=== PATIENT | male | born 1950 | race Caucasian/White ===

== ENCOUNTER 2018-02-02 10:12 | Inpatient (IN) | payer MEDICARE, MEDICAID ==
--- NOTE | 2018-02-02 10:46 | ED Physician Chart ---
ED Chief Complaint/HPI - Patient Information Date Seen:: 02/02/18 Time Seen:: 10:10 Chief Complaint:: Syncope History of Present Illness:: onset x 3 days of multiple syncope and near-syncope episodes resulting in multiple falls; no report of obvious injuries, trauma, H/As, S/T, neck pain, C/P , SOB, Abd. Pain, A/N/V/D/c, fever, chills, or urinary s/s; pt's last tetanus shot: < 5 years; UTD Allergies:: Allergies Allergy/AdvReac Type Severity Reaction Status Date / Time Penicillins [PCN] Allergy Verified 02/02/18 10:22 Vitals:: Vital Signs - 8 hr 02/02/18 10:22 Temp 97.8 F HR 83 RR 16 BP 159/96 O2 Sat % 98 Historian:: Patient Review:: Nurse's Note Reviewed ED Review of Systems - Review of Systems General/Constitutional: No fever, No chills, No weight loss, No weakness, No diaphoresis, No edema, No loss of appetite Skin: No skin lesions, No rash, No bruising Head: No headache, No light-headedness Eyes: No loss of vision, No pain, No diplopia ENT: No earache, No nasal drainage, No sore throat, No tinnitus Neck: No neck pain, No swelling, No thyromegaly, No stiffness, No mass noted Cardio Vascular: No chest pain, No palpitations, No PND, No orthopnea, No edema Pulmonary: No SOB, No cough, No sputum, No wheezing GI: No nausea, No vomiting, No diarrhea, No pain, No melena, No hematochezia, No constipation, No hematemesis G/U: No dysuria, No frequency, No hematuria, No nacturia Musculoskeletal: No bone or joint pain, No back pain, No muscle pain Endocrine: No polyuria, No polydipsia Psychiatric: No prior psych history, No depression, No anxiety, No suicidal ideation, No homicidal ideation, No auditory hallucination, No visual hallucination Hematopoietic: No bruising, No lymphadenopathy Allergic/Immuno: No urticaria, No angioedema Neurological: Syncope, No focal symptoms, Weakness, No paresthesia, No headache , No seizure, Dizziness, No confusion, Vertigo ED Past Medical History - Past Medical History Obtainable: Yes Past Medical History: HTN, CVA/TIA, Dyslipidemia, Arthritis Family History: HTN Social History: Smoker, Alcohol, No Drug Use, Surgical History: other (Back Surgery) Psychiatricy History: None Medication: Reviewed Family Medical History - Family Member Mother History Unknown: Yes ED Physical Exam - Physical Examination General/Constitutional: Awake, Well-developed, well-nourished, Alert, No distress, GCS 15, Non-toxic appearing, Ambulatory Head: Atraumatic Eyes: Lids, conjuctiva normal, PERRL, EOMI Skin: Nl inspection, No rash, No skin lesions, No ecchymosis, Well hydrated, No lymphadenopathy ENMT: External ears, nose nl, TM canals nl, Nasal exam nl, Lips, teeth, gums nl , Oropharynx nl, Tonsils nl Neck: Nontender, Full ROM w/o pain, No JVD, No nuchal rigidity, No bruit, No mass, No stridor Respiratory: Nl effort/Exclusion, Clear to Auscultation, No Wheeze/Rhonchi/Rales Cardio Vascular: RRR, No murmur, gallop, rubs, NL S1 S2, Carotid/Femoral/Distal pulses equal bilaterally GI: No tenderness/rebounding/guarding, No organomegaly, No hernia, Normal BS's, Nondistended, No mass/bruits, No McBurney tenderness : No CVA tenderness Extremities: No tenderness or effusion, Full ROM, normal strength in all extremities, No edema, Normal digits & nails Neuro/Psych: Alert/oriented, DTR's symmetric, Normal sensory exam, Normal motor strength, Judgement/insight normal, Mood normal, Normal gait, No focal deficits Misc: Normal back, No paraspinal tenderness ED Labs/Radiology/EKG Results - Lab Results Comments:: unremarkable - Radiology Results Comments:: NAD - EKG Interpretations EKG Time:: 10:56 Rate & Rhythm: 81; NSR Comments:: non-specific st-t changes ED Septic Shock - . Is Septic Shock (SBP<90, OR Lactate>4 mmol\L) present?: No - <6hrs of presentation: Vital Signs: Vital Signs - 8 hr 02/02/18 10:22 Temp 97.8 F HR 83 RR 16 BP 159/96 O2 Sat % 98 ED Reassessment (Disposition) - Reassessment Reassessment Condition:: Improved - Diagnosis Diagnosis:: Dx: Syncope; S/P Falls; Multiple Falls; Near-Syncope; Cardiac Arrythmias; TIA - Aftercare/Follow up Instructions Aftercare/Follow-Up Instructions:: Counseled pt regarding lab results/diagnosis & need follow up, Counseled pt & family regarding lab results/diagnosis & need follow up - Patient Disposition Discharge/Transfer:: Acute Care w/in this hosp Accepting Physician:: Dr. Andrae Swann Time Called:: 1200 Time Responded:: 12:00 Admitted to:: Telemetry Spoke to:: Dr. Andrae Swann Admitting Medical Physician:: Dr. Andrae Swann Condition at Disposition:: Stable, Improved
[2018-02-02 10:57] LABS: % EOSINOPHILS 3.5 % (0.0-5.0); % LYMPHOCYTES 28.3 % (20.0-50.0); % MONOCYTES 9.2 % (2.0-10.0); BASOPHILE ABSOLUTE 0.1 Th/cumm (0-0.2); EOSINOPHILE ABSOLUTE 0.2 Th/cmm (0.1-0.4); HEMATOCRIT 44.9 % (41.0-60); LYMPHOCYTE ABSOLUTE 1.6 Th/cmm (1.5-3.0); MEAN CELL VOLUME 94.2 fl (80-99); MEAN CORPUSCULAR HEMOGLOBIN 31.5 pg (27.0-31.0); MEAN CORPUSCULAR HGB CONC 33.4 pg (28.0-36.0); MONOCYTE ABSOLUTE 0.5 Th/cmm (0.3-1.0); NEUTROPHILE ABSOLUTE 3.4 Th/cmm (1.8-8.0); PLATELET COUNT 305 Th/cmm (150-400); RED BLOOD COUNT 4.77 Mil/cmm (3.80-5.80); WHITE BLOOD COUNT 5.8 Th/cmm (4.8-10.8)
[2018-02-02 11:07] LABS: INR 0.97 (0.5-1.4); PROTHROMBIN TIME (TEST) 10.1 SECONDS (9.5-11.5)
[2018-02-02 11:11] LABS: ALB/GLOB RATIO 1.3 (1.0-1.8); ALBUMIN 4.3 gm/dL (4.2-5.5); ALKALINE PHOSPHATASE 77 U/L (34-104); BILIRUBIN,TOTAL 0.7 mg/dL (0.3-1.0); BUN - UREA NITROGEN 11 mg/dL (7-25); CALCIUM SERUM 9.4 mg/dL (8.6-10.3); CARBON DIOXIDE 22.7 mEq/L (21.0-31.0); CHLORIDE 103 mEq/L (98-107); CHOLESTEROL 164 mg/dL (<200); CREATININE - SERUM 0.6 mg/dL (0.7-1.3); CREATININE KINASE 104 U/L (30-223); GFR AFRICAN-AMERICAN > 60.0 ml/min (>90); GFR NON AFRICAN-AMERICAN > 60.0 ml/min; GLUCOSE 105 mg/dL (70-105); HDL -HIGH DENSITY LIPOPROTEIN 88 mg/dL (23-92); POTASSIUM SERUM 3.7 mEq/L (3.5-5.1); SGOT 16 U/L (13-39); SGPT/ALT 11 U/L (7-52); SODIUM SERUM 133 mEq/L (136-145); TOTAL PROTEIN,SERUM 7.5 gm/dL (6.0-8.3); TRIGLYCERIDES 61 mg/dL (<150)
--- NOTE | 2018-02-02 11:12 | Diagnostic Imaging Report ---
CHEST X-RAY: AP view INDICATION: pain COMPARISON: None FINDINGS: Mild chronic lung changes are noted. There is no focal consolidation or pleural effusions The heart is normal in size. Advanced degenerative changes of right shoulder noted with high right and right humeral head. IMPRESSION: Mild chronic lung changes with no focal consolidation identified. Advanced degenerative changes of the right shoulder.
[2018-02-02] MEDS ORDERED: Morphine Sulfate 4 mg/mL 1mL Syr IV STA (14:14)
[2018-02-02] MEDS ORDERED: Morphine Sulfate 2 mg/mL 1mL Syr IV STA (14:14)
[2018-02-02] MEDS ORDERED: Morphine Sulfate 4 mg/mL 1mL Syr ONE (14:23)
[2018-02-02] MEDS ORDERED: Hydrocodone/APAP 5mg/325mg Tab PO PRN (17:19)
[2018-02-02] MEDS: Hydrocodone/APAP 10 mg/325 mg Tab PO PRN (18:01)
[2018-02-03] MEDS: Hydrocodone/APAP 10 mg/325 mg Tab PO PRN ×2 (01:01→10:24)
[2018-02-03 04:58] VITALS: BP 130/72
[2018-02-03 06:34] LABS: % BASOPHILS 0.8 % (0.0-2.0); % EOSINOPHILS 6.4 % (0.0-5.0); % LYMPHOCYTES 38.2 % (20.0-50.0); % MONOCYTES 9.2 % (2.0-10.0); % NEUTROPHILS 45.4 % (40.0-80.0); EOSINOPHILE ABSOLUTE 0.4 Th/cmm (0.1-0.4); HEMATOCRIT 41.3 % (41.0-60); HEMOGLOBIN 14.2 gm/dL (12-16); LYMPHOCYTE ABSOLUTE 2.3 Th/cmm (1.5-3.0); MEAN CELL VOLUME 92.9 fl (80-99); MEAN CORPUSCULAR HEMOGLOBIN 31.9 pg (27.0-31.0); MEAN CORPUSCULAR HGB CONC 34.4 pg (28.0-36.0); MEAN PLATELET VOLUME 7.4 fl; MONOCYTE ABSOLUTE 0.6 Th/cmm (0.3-1.0); NEUTROPHILE ABSOLUTE 2.8 Th/cmm (1.8-8.0); PLATELET COUNT 265 Th/cmm (150-400); RED BLOOD COUNT 4.44 Mil/cmm (3.80-5.80); RED CELL DISTRIBUTION WIDTH 12.9 % (11.5-20.0); WHITE BLOOD COUNT 6.1 Th/cmm (4.8-10.8)
[2018-02-03 06:43] LABS: ANION GAP 10.5 (7.0-16.0); BUN - UREA NITROGEN 16 mg/dL (7-25); CALCIUM SERUM 9.3 mg/dL (8.6-10.3); CARBON DIOXIDE 25.1 mEq/L (21.0-31.0); CHLORIDE 102 mEq/L (98-107); CHOLESTEROL 142 mg/dL (<200); CREATININE - SERUM 0.7 mg/dL (0.7-1.3); GFR AFRICAN-AMERICAN > 60.0 ml/min (>90); GFR NON AFRICAN-AMERICAN > 60.0 ml/min; GLUCOSE 102 mg/dL (70-105); HDL -HIGH DENSITY LIPOPROTEIN 72 mg/dL (23-92); POTASSIUM SERUM 3.6 mEq/L (3.5-5.1); SODIUM SERUM 134 mEq/L (136-145); TRIGLYCERIDES 73 mg/dL (<150)
--- NOTE | 2018-02-03 08:51 | Diagnostic Imaging Report ---
CT scan of the brain without intravenous contrast HISTORY: Syncope, frequent falls Total DLP equals 718 CTDI equals 35.7 Axial sections were obtained from the base of the skull to the vertex. There is enlargement of ventricular system along with enlargement of cerebral sulci and subarachnoid cisterns reflecting atrophy. Focal hypodensity seen within the right and left frontal regions. There appears to be volume loss and changes associated with encephalomalacia. Exact etiology is uncertain. Changes may be related to old infarcts. Clinical correlation is needed. A follow-up MRI exam would provide additional characterization and assessment. No acute intracerebral hemorrhage. No mass effect or shift of midline structures. Sclerotic change involves the mastoid air cell regions bilaterally. Findings may be associated with inflammatory sequelae. IMPRESSION: 1. Bilateral fairly symmetric hypodense changes with fine loss consistent with encephalomalacia within the frontal regions of the brain. Exact etiology uncertain. Changes may be related to old infarcts. Clinical correlation needed. If necessary, a follow-up MRI exam would provide additional characterization 2. No acute intracerebral abnormalities 3. Sclerotic change involving the mastoid air cell regions bilaterally consistent with inflammatory sequelae.
[2018-02-03] MEDS: APAP/Oxycodone 5/325mg Oral Tab PO PRN ×2 (13:42→20:22)
--- NOTE | 2018-02-03 14:40 | History & Physical ---
ADMIT DATE: 02/03/2018 CHIEF COMPLAINT: Syncope. HISTORY OF PRESENT ILLNESS: The patient is a 67-year-old male with past medical history of hypertension, CVA, TIA, dyslipidemia, arthritis, had multiple episodes of syncope and near syncope episodes with multiple falls. Otherwise, he complains of severe peripheral neuropathy in both lower extremities, below the hip. He also stated that he had some back surgery performed in the past. He gets severe back pain and neuropathic pain. On initial evaluation, the patient's vitals were stable. Lab work also within normal limit. CT scan of the head was performed, did not show any acute abnormality. The patient was admitted for evaluation. PAST MEDICAL HISTORY: Hypertension, CVA, TIA, dyslipidemia, arthritis. He had a few visits to the hospital; last one, he had UTI and he stayed in the hospital for 2 months. FAMILY HISTORY: None significant. SOCIAL HISTORY: The patient lives at home at this time. He has a history of smoking and alcohol, but denies any drug use. . PAST SURGICAL HISTORY: Back surgery. PSYCHIATRIC HISTORY: None. REVIEW OF SYSTEMS: GENERAL: The patient denies any fever or chills. HEENT: No diplopia, no photophobia, no sore throat. RESPIRATORY: No cough, no shortness of breath. CARDIOVASCULAR: No chest pain or palpitation. GASTROINTESTINAL: No nausea, no vomiting, no diarrhea, no constipation. GENITOURINARY: No dysuria. The patient has an indwelling catheter for neurogenic bladder probably. NEUROLOGIC: No headache, no dizziness. The patient has weakness of both lower extremities and has neuropathic pain. PHYSICAL EXAMINATION: CURRENT VITAL SIGNS: Show temperature is 97.9, pulse 71, respiration is 18, blood pressure 156/89. GENERAL: The patient is comfortable, lying in the bed, not in acute distress. HEENT: Head is normocephalic, atraumatic. Oral cavity moist, pink tongue. Eyes: No pallor, no icterus. Pupils, PERRLA, EOMI. NECK: Supple. No JVD, no carotid bruit. Trachea midline. CHEST: Bilateral breath sounds. No crackles or wheezing. HEART: S1, S2 within normal limits. Regular rhythm. No murmur, no gallop. ABDOMEN: Soft, nontender, nondistended. Bowel sounds present. EXTREMITIES: No cyanosis, no clubbing, no edema. NEUROLOGIC: Alert, awake, oriented x 3. LABORATORY DATA: His current lab shows WBC count is 6100, hemoglobin 14.2, hematocrit 41.3, platelets are 265,000. Sodium 134, potassium 3.6, chloride 102, bicarbonate is 25, BUN is 16, creatinine 0.7, glucose 102. IMPRESSION: 1. Syncope and near syncopal episodes with frequent falls. 2. Hypertension. 3. History of CVA. 4. History of cerebrovascular accident and transient ischemic attack. 5. Dyslipidemia. 6. Arthritis. RECOMMENDATIONS: We will call Dr. Chacorta Swann for cardiology consult and Dr. Montano for neurological consultation. check carotid duplex ultrasound. JOB# [id number] [email or web address]
[2018-02-03] MEDS: Triple Antibiotic 0.94 gm Pkt TP SCH (18:42)
--- NOTE | 2018-02-03 23:56 | Consultation ---
DATE OF CONSULTATION: 02/02/[address] Gregg Swann. HISTORY OF PRESENT ILLNESS: This is a 67-year-old male patient who has frequent falls with syncopal episode and hence, the patient was brought to the Emergency Room and the patient is admitted. No history of PND or orthopnea. PAST MEDICAL HISTORY: Syncope, frequent falls, hypertension, CVA with late effect, hyperlipidemia, and peripheral neuropathy. FAMILY HISTORY: Unremarkable. SOCIAL HISTORY: No history of smoking or alcohol abuse. ALLERGIES: No known allergies. PHYSICAL EXAMINATION: VITAL SIGNS: Blood pressure 150/80, pulse 70, and respirations 20. HEAD: Normocephalic. No lumps or bumps. EYES: Pupils equal, reactive to light. Fundi show AV nicking, sclerae white, conjunctivae pink. NECK: Carotid 2+. Normal upstroke. JVD flat. Thyroid not palpable. Lymph nodes not palpable. CHEST: Shows increased AP diameter. No kyphosis, scoliosis. LUNGS: Bilateral bronchovesicular breath sounds. HEART: PMI fifth intercostal space with lateral to midclavicular line. S1, S2. No S3, S4, soft systolic murmur. ABDOMEN: Soft. Liver and spleen not palpable. No organomegaly. Bowel sounds active. NEUROLOGIC: No focal neurological deficit. EXTREMITIES: Peripheral pulses 2+. No pedal edema. CLINICAL IMPRESSION: 1. Syncope. 2. Frequent falls. 3. Hypertension. 4. Cerebrovascular accident with late effect. 5. Hyperlipidemia. 6. Peripheral neuropathy. PLAN: Admit the patient. We will get carotid duplex study, echocardiogram, and Neurology evaluation. JOB# [id number]
[2018-02-04] MEDS: APAP/Oxycodone 5/325mg Oral Tab PO PRN ×3 (02:13→17:53)
[2018-02-04 06:18] LABS: % BASOPHILS 1.3 % (0.0-2.0); % EOSINOPHILS 6.4 % (0.0-5.0); % LYMPHOCYTES 41.6 % (20.0-50.0); % MONOCYTES 9.9 % (2.0-10.0); % NEUTROPHILS 40.8 % (40.0-80.0); BASOPHILE ABSOLUTE 0.1 Th/cumm (0-0.2); EOSINOPHILE ABSOLUTE 0.4 Th/cmm (0.1-0.4); HEMATOCRIT 43.4 % (41.0-60); HEMOGLOBIN 14.7 gm/dL (12-16); LYMPHOCYTE ABSOLUTE 2.7 Th/cmm (1.5-3.0); MEAN CELL VOLUME 93.4 fl (80-99); MEAN CORPUSCULAR HEMOGLOBIN 31.6 pg (27.0-31.0); MEAN CORPUSCULAR HGB CONC 33.8 pg (28.0-36.0); MEAN PLATELET VOLUME 8.2 fl; MONOCYTE ABSOLUTE 0.6 Th/cmm (0.3-1.0); NEUTROPHILE ABSOLUTE 2.6 Th/cmm (1.8-8.0); PLATELET COUNT 278 Th/cmm (150-400); RED BLOOD COUNT 4.65 Mil/cmm (3.80-5.80); RED CELL DISTRIBUTION WIDTH 13.1 % (11.5-20.0); WHITE BLOOD COUNT 6.4 Th/cmm (4.8-10.8)
[2018-02-04 06:41] LABS: ALB/GLOB RATIO 1.2 (1.0-1.8); ALBUMIN 4.1 gm/dL (4.2-5.5); ALKALINE PHOSPHATASE 69 U/L (34-104); ANION GAP 11.5 (7.0-16.0); BILIRUBIN,TOTAL 0.7 mg/dL (0.3-1.0); BUN - UREA NITROGEN 14 mg/dL (7-25); CALCIUM SERUM 9.6 mg/dL (8.6-10.3); CARBON DIOXIDE 22.4 mEq/L (21.0-31.0); CHLORIDE 102 mEq/L (98-107); CREATININE - SERUM 0.9 mg/dL (0.7-1.3); GFR AFRICAN-AMERICAN > 60.0 ml/min (>90); GFR NON AFRICAN-AMERICAN > 60.0 ml/min; GLUCOSE 89 mg/dL (70-105); POTASSIUM SERUM 3.9 mEq/L (3.5-5.1); SGOT 16 U/L (13-39); SGPT/ALT 11 U/L (7-52); SODIUM SERUM 132 mEq/L (136-145); TOTAL PROTEIN,SERUM 7.5 gm/dL (6.0-8.3)
--- NOTE | 2018-02-04 07:28 | Diagnostic Imaging Report ---
Carotid ultrasound HISTORY: Syncope COMPARISON: None Technique: Longitudinal and transverse sonographic sector images of the carotid arteries were obtained with doppler analysis. FINDINGS: Exam of the right side demonstrates mild to moderate atherosclerotic vascular disease and areas of calcified plaque formation, greatest within the carotid bulb. Exam of the left side demonstrates mild to moderate atherosclerotic vascular disease with areas of calcified plaque formation, greatest within the carotid bulb. The velocity and velocity ratios are within normal limits. Antegrade vertebral artery flow is demonstrated bilaterally. IMPRESSION: Mild to moderate generalized atherosclerotic vascular disease. No evidence of hemodynamically significant stenosis.
[2018-02-04] MEDS ORDERED: LACTOSE REDUCED FOOD PO SCH (09:00)
[2018-02-04] MEDS: Fluticasone Propionate 0.05mg/Actuation 16gm Nasal Spray NS SCH (09:42)
[2018-02-04] MEDS: Triple Antibiotic 0.94 gm Pkt TP SCH ×2 (09:42→17:53)
--- NOTE | 2018-02-04 11:11 | Infectious Disease Prog Note ---
Infectious Disease Subjective - Review of Systems Service Date: 02/04/18 Subjective: No new change, no fever. Infectious Disease Objective - Results Result Diagrams: 02/04/18 05:16 02/04/18 05:16 Recent Labs: Laboratory Last Values WBC 6.4 Th/cmm (4.8-10.8) 02/04/18 05:16 RBC 4.65 Mil/cmm (3.80-5.80) 02/04/18 05:16 Hgb 14.7 gm/dL (12-16) 02/04/18 05:16 Hct 43.4 % (41.0-60) 02/04/18 05:16 MCV 93.4 fl (80-99) 02/04/18 05:16 MCH 31.6 pg (27.0-31.0) H 02/04/18 05:16 MCHC Differential 33.8 pg (28.0-36.0) 02/04/18 05:16 RDW 13.1 % (11.5-20.0) 02/04/18 05:16 Plt Count 278 Th/cmm (150-400) 02/04/18 05:16 MPV 8.2 fl 02/04/18 05:16 Neutrophils % 40.8 % (40.0-80.0) 02/04/18 05:16 Lymphocytes % 41.6 % (20.0-50.0) 02/04/18 05:16 Monocytes % 9.9 % (2.0-10.0) 02/04/18 05:16 Eosinophils % 6.4 % (0.0-5.0) H 02/04/18 05:16 Basophils % 1.3 % (0.0-2.0) 02/04/18 05:16 PT 10.1 SECONDS (9.5-11.5) 02/02/18 10:50 INR 0.97 (0.5-1.4) 02/02/18 10:50 Sodium 132 mEq/L (136-145) L 02/04/18 05:16 Potassium 3.9 mEq/L (3.5-5.1) 02/04/18 05:16 Chloride 102 mEq/L (98-107) 02/04/18 05:16 Carbon Dioxide 22.4 mEq/L (21.0-31.0) 02/04/18 05:16 Anion Gap 11.5 (7.0-16.0) 02/04/18 05:16 BUN 14 mg/dL (7-25) 02/04/18 05:16 Creatinine 0.9 mg/dL (0.7-1.3) 02/04/18 05:16 Est GFR ( Amer) > 60.0 ml/min (>90) 02/04/18 05:16 Est GFR (Non-Af Amer) > 60.0 ml/min 02/04/18 05:16 BUN/Creatinine Ratio 15.6 02/04/18 05:16 Glucose 89 mg/dL (70-105) 02/04/18 05:16 Calcium 9.6 mg/dL (8.6-10.3) 02/04/18 05:16 Total Bilirubin 0.7 mg/dL (0.3-1.0) 02/04/18 05:16 AST 16 U/L (13-39) 02/04/18 05:16 ALT 11 U/L (7-52) 02/04/18 05:16 Alkaline Phosphatase 69 U/L (34-104) 02/04/18 05:16 Creatine Kinase 104 U/L (30-223) 02/02/18 10:50 Troponin I < 0.01 ng/mL (0.01-0.05) L 02/02/18 10:50 B-Natriuretic Peptide 15.3 pg/mL (5.0-100.0) 02/02/18 10:50 Total Protein 7.5 gm/dL (6.0-8.3) 02/04/18 05:16 Albumin 4.1 gm/dL (4.2-5.5) L 02/04/18 05:16 Globulin 3.4 gm/dL 02/04/18 05:16 Albumin/Globulin Ratio 1.2 (1.0-1.8) 02/04/18 05:16 Triglycerides 73 mg/dL (<150) 02/03/18 05:40 Cholesterol 142 mg/dL (<200) 02/03/18 05:40 LDL Cholesterol Direct 56 mg/dL (75-193) L 02/03/18 05:40 HDL Cholesterol 72 mg/dL (23-92) 02/03/18 05:40 - Physical Exam Vitals and I&O: Vital Signs Temp 98.0 F 02/04/18 08:00 Pulse 64 02/04/18 09:42 Resp 18 02/04/18 08:00 BP 110/70 02/04/18 09:42 Pulse Ox 97 02/04/18 08:00 Intake & Output 02/03/18 02/04/18 02/04/18 18:59 06:59 18:59 Intake Total 500 Balance 500 Weight (lbs) 50.349 kg 50.349 kg Intake: Oral 500 Other: # Voids 3 # Bowel Movements 1 Weight Source Bedscale Bedscale Active Medications: Current Medications Bisacodyl (Dulcolax 10 Mg Supp) 10 mg RC DAILY REPLACED BY [facility] Stop: 04/05/18 08:59 Last Admin: 02/04/18 09:51 Dose: 10 mg Enalapril Maleate (Vasotec) 5 mg PO DAILY REPLACED BY [facility] Stop: 04/03/18 17:17 Last Admin: 02/04/18 09:42 Dose: Not Given Fluticasone Propionate (Flonase) 2 spr NS DAILY [facility] Stop: 04/05/18 08:59 Last Admin: 02/04/18 09:42 Dose: 2 spr Gabapentin (Neurontin) 300 mg PO TID [facility] Stop: 04/04/18 13:59 Last Admin: 02/04/18 09:42 Dose: 300 mg Neomycin/Polymyxin/Bacitracin (Triple Antibiotic Pkt) 1 pkt TP BID REPLACED BY [facility] Stop: 04/04/18 14:14 Last Admin: 02/04/18 09:42 Dose: 1 pkt Oxycodone/Acetaminophen (Percocet 5/325mg Oral Tab) 1 tab PO Q6HR PRN PRN Reason: Pain (Moderate) Stop: 04/04/18 13:02 Last Admin: 02/04/18 09:42 Dose: 1 tab General: no acute distress, well developed, well nourished HEENT: atraumatic, normocephalic, PERRLA, EOMI, moist mucous membrane Neck: supple, no thyromegaly Cardiovascular: S1S2, regular Lungs: clear to auscultation bilaterally, clear to percussion Abdomen: soft, no tender, no distended, no mass Extremities: lines, no cyanosis, no clubbing, no edema Neurological: awake, alert Skin: intact Infectious Disease Assmt/Plan - Assessment Assessment: 1. Syncope and near syncopal episodes with frequent falls. 2. Hypertension. 3. History of back pain. 4. History of cerebrovascular accident and transient ischemic attack. 5. Dyslipidemia. 6. Arthritis. - Plan Plan: CPM.Cardiology consult by Dr Chacorta Swann is appreciated. Neurology eval.
[2018-02-05] MEDS: APAP/Oxycodone 5/325mg Oral Tab PO PRN ×4 (00:26→22:51)
[2018-02-05 06:21] LABS: % BASOPHILS 0.9 % (0.0-2.0); % EOSINOPHILS 6.5 % (0.0-5.0); % LYMPHOCYTES 38.6 % (20.0-50.0); % MONOCYTES 8.3 % (2.0-10.0); % NEUTROPHILS 45.7 % (40.0-80.0); BASOPHILE ABSOLUTE 0.1 Th/cumm (0-0.2); EOSINOPHILE ABSOLUTE 0.4 Th/cmm (0.1-0.4); HEMATOCRIT 41.5 % (41.0-60); HEMOGLOBIN 14.1 gm/dL (12-16); LYMPHOCYTE ABSOLUTE 2.4 Th/cmm (1.5-3.0); MEAN CELL VOLUME 94.1 fl (80-99); MEAN CORPUSCULAR HEMOGLOBIN 31.9 pg (27.0-31.0); MEAN CORPUSCULAR HGB CONC 33.9 pg (28.0-36.0); MEAN PLATELET VOLUME 8.6 fl; MONOCYTE ABSOLUTE 0.5 Th/cmm (0.3-1.0); NEUTROPHILE ABSOLUTE 2.7 Th/cmm (1.8-8.0); PLATELET COUNT 231 Th/cmm (150-400); RED BLOOD COUNT 4.41 Mil/cmm (3.80-5.80); WHITE BLOOD COUNT 6.1 Th/cmm (4.8-10.8)
[2018-02-05 06:28] LABS: ALB/GLOB RATIO 1.2 (1.0-1.8); ALBUMIN 3.7 gm/dL (4.2-5.5); ALKALINE PHOSPHATASE 62 U/L (34-104); ANION GAP 10.1 (7.0-16.0); BILIRUBIN,TOTAL 0.4 mg/dL (0.3-1.0); BUN - UREA NITROGEN 13 mg/dL (7-25); CALCIUM SERUM 9.1 mg/dL (8.6-10.3); CARBON DIOXIDE 23.8 mEq/L (21.0-31.0); CHLORIDE 106 mEq/L (98-107); CREATININE - SERUM 0.7 mg/dL (0.7-1.3); GFR AFRICAN-AMERICAN > 60.0 ml/min (>90); GFR NON AFRICAN-AMERICAN > 60.0 ml/min; GLUCOSE 92 mg/dL (70-105); POTASSIUM SERUM 3.9 mEq/L (3.5-5.1); SGOT 14 U/L (13-39); SGPT/ALT 9 U/L (7-52); SODIUM SERUM 136 mEq/L (136-145); TOTAL PROTEIN,SERUM 6.8 gm/dL (6.0-8.3)
[2018-02-05] MEDS: Triple Antibiotic 0.94 gm Pkt TP SCH ×2 (10:24→16:09)
[2018-02-05] MEDS: Fluticasone Propionate 0.05mg/Actuation 16gm Nasal Spray NS SCH (10:31)
[2018-02-05 13:32] LABS: URINE MICROSCOPIC INDICATED? YES; URINE SOURCE FOLEY PORT
[2018-02-05 13:41] LABS: URINE BILIRUBIN NEGATIVE (NEGATIVE); URINE BLOOD SMALL (NEGATIVE); URINE COLOR YELLOW; URINE GLUCOSE (UA) NEGATIVE (NEGATIVE); URINE KETONE NEGATIVE (NEGATIVE); URINE LEUKOCYTE ESTERASE LARGE (NEGATIVE); URINE NITRATE POSITIVE (NEGATIVE); URINE PH 7.5 (4.6 - 8.0); URINE PROTEIN NEGATIVE (NEGATIVE); URINE UROBILINOGEN 0.2 E.U./dL (0.2 - 1.0)
[2018-02-05 13:42] LABS: URINE CLARITY SLIGHT CLOUDY (CLEAR)
[2018-02-05 13:47] LABS: URINE RBC 0-2 /hpf (0-5)
[2018-02-05 13:48] LABS: URINE BACTERIA MODERATE /hpf (NONE SEEN); URINE EPITHELIAL CELLS OCCASIONAL /lpf (FEW)
[2018-02-05 13:49] LABS: URINE TRIPLE PHOSPHATE CRYSTAL MODERATE /hpf (FEW)
--- NOTE | 2018-02-05 22:55 | Consultation ---
DATE OF CONSULTATION: 02/05/2018 IDENTIFICATION: The patient is a 67 year-old. HISTORY OF PRESENT ILLNESS: The patient said he had problems where he has difficulty with walking. He notes that he will fall down. Legs will give out. In addition, the patient gives episode where he says he has problems where he feels kind of lightheaded and would almost pass out, would sometimes pass out. PAST MEDICAL HISTORY: 1. Hypertension. 2. Dyslipidemia. 3. Previous stroke. 4. TIA. 5. The patient had previous episode of sepsis. SOCIAL HISTORY: Does not smoke or drink. PAST SURGICAL HISTORY: The patient had back surgery done in the past. PSYCHIATRIC: None. MEDICATIONS: As per reconciliation. PHYSICAL EXAMINATION: VITAL SIGNS: Temperature 97.9, blood pressure 115/60, pulse is 70. NECK: Supple. No neck bruits. HEART: Sounds S1, S2. LUNGS: Clear. NEUROLOGIC: The patient is lying in bed, awake. He answers questions. Speech is normal. CRANIAL: Pupils react to light. No facial weakness. MOTOR: He will lift both upper extremities. I do not see marked weakness. Legs, he is weak on both the legs. He lifts them up, but it is about 4/5. Reflexes are about 1+ in the upper extremities, knees are about 2. Ankles difficult to get. The patient with bilateral Babinski. INVESTIGATIONS: CT scan of the head, no acute stroke. The patient's previous hypodense area in the frontal region of the brain, possible old stroke. On Carotid Doppler, no significant stenosis. ASSESSMENT: 1. Syncope. 2. Falls with leg weakness. 3. Hypertension. 4. History of stroke. 5. Dyslipidemia and arthritis. PLAN: We will get the MRI of cervical spine, CT scan of the lumbar spine. Physical therapy. JOB# [id number]
--- NOTE | 2018-02-05 23:26 | Infectious Disease Prog Note ---
Infectious Disease Subjective - Review of Systems Service Date: 02/05/18 Subjective: No new change, no fever. Infectious Disease Objective - Results Result Diagrams: 02/06/18 06:05 02/06/18 06:05 Recent Labs: Laboratory Last Values WBC 6.1 Th/cmm (4.8-10.8) 02/05/18 05:14 RBC 4.41 Mil/cmm (3.80-5.80) 02/05/18 05:14 Hgb 14.1 gm/dL (12-16) 02/05/18 05:14 Hct 41.5 % (41.0-60) 02/05/18 05:14 MCV 94.1 fl (80-99) 02/05/18 05:14 MCH 31.9 pg (27.0-31.0) H 02/05/18 05:14 MCHC Differential 33.9 pg (28.0-36.0) 02/05/18 05:14 RDW 13.0 % (11.5-20.0) 02/05/18 05:14 Plt Count 231 Th/cmm (150-400) 02/05/18 05:14 MPV 8.6 fl 02/05/18 05:14 Neutrophils % 45.7 % (40.0-80.0) 02/05/18 05:14 Lymphocytes % 38.6 % (20.0-50.0) 02/05/18 05:14 Monocytes % 8.3 % (2.0-10.0) 02/05/18 05:14 Eosinophils % 6.5 % (0.0-5.0) H 02/05/18 05:14 Basophils % 0.9 % (0.0-2.0) 02/05/18 05:14 PT 10.1 SECONDS (9.5-11.5) 02/02/18 10:50 INR 0.97 (0.5-1.4) 02/02/18 10:50 Sodium 136 mEq/L (136-145) 02/05/18 05:14 Potassium 3.9 mEq/L (3.5-5.1) 02/05/18 05:14 Chloride 106 mEq/L (98-107) 02/05/18 05:14 Carbon Dioxide 23.8 mEq/L (21.0-31.0) 02/05/18 05:14 Anion Gap 10.1 (7.0-16.0) 02/05/18 05:14 BUN 13 mg/dL (7-25) 02/05/18 05:14 Creatinine 0.7 mg/dL (0.7-1.3) 02/05/18 05:14 Est GFR ( Amer) > 60.0 ml/min (>90) 02/05/18 05:14 Est GFR (Non-Af Amer) > 60.0 ml/min 02/05/18 05:14 BUN/Creatinine Ratio 18.6 02/05/18 05:14 Glucose 92 mg/dL (70-105) 02/05/18 05:14 Calcium 9.1 mg/dL (8.6-10.3) 02/05/18 05:14 Total Bilirubin 0.4 mg/dL (0.3-1.0) 02/05/18 05:14 AST 14 U/L (13-39) 02/05/18 05:14 ALT 9 U/L (7-52) 02/05/18 05:14 Alkaline Phosphatase 62 U/L (34-104) 02/05/18 05:14 Creatine Kinase 104 U/L (30-223) 02/02/18 10:50 Troponin I < 0.01 ng/mL (0.01-0.05) L 02/02/18 10:50 B-Natriuretic Peptide 15.3 pg/mL (5.0-100.0) 02/02/18 10:50 Total Protein 6.8 gm/dL (6.0-8.3) 02/05/18 05:14 Albumin 3.7 gm/dL (4.2-5.5) L 02/05/18 05:14 Globulin 3.1 gm/dL 02/05/18 05:14 Albumin/Globulin Ratio 1.2 (1.0-1.8) 02/05/18 05:14 Triglycerides 73 mg/dL (<150) 02/03/18 05:40 Cholesterol 142 mg/dL (<200) 02/03/18 05:40 LDL Cholesterol Direct 56 mg/dL (75-193) L 02/03/18 05:40 HDL Cholesterol 72 mg/dL (23-92) 02/03/18 05:40 Urine Source [place] 02/05/18 12:50 Urine Color YELLOW 02/05/18 12:50 Urine Clarity SLIGHT CLOUDY (CLEAR) 02/05/18 12:50 Urine pH 7.5 (4.6 - 8.0) 02/05/18 12:50 Ur Specific [place] 1.010 (1.005-1.030) 02/05/18 12:50 Urine Protein NEGATIVE mg/dL (NEGATIVE) 02/05/18 12:50 Urine Glucose (UA) NEGATIVE mg/dL (NEGATIVE) 02/05/18 12:50 Urine Ketones NEGATIVE mg/dL (NEGATIVE) 02/05/18 12:50 Urine Blood SMALL (NEGATIVE) H 02/05/18 12:50 Urine Nitrate POSITIVE (NEGATIVE) H 02/05/18 12:50 Urine Bilirubin NEGATIVE (NEGATIVE) 02/05/18 12:50 Urine Urobilinogen 0.2 E.U./dL (0.2 - 1.0) 02/05/18 12:50 Ur Leukocyte Esterase LARGE (NEGATIVE) H 02/05/18 12:50 Urine RBC 0-2 /hpf (0-5) H 02/05/18 12:50 Urine WBC 10-25 /hpf (0-5) H 02/05/18 12:50 Ur Epithelial Cells OCCASIONAL /lpf (FEW) 02/05/18 12:50 Triple Phos Crystals MODERATE /hpf (FEW) 02/05/18 12:50 Urine Bacteria MODERATE /hpf (NONE SEEN) H 02/05/18 12:50 - Physical Exam Vitals and I&O: Vital Signs Temp 97.2 F 02/05/18 16:00 Pulse 78 02/05/18 16:00 Resp 18 02/05/18 16:00 BP 106/62 02/05/18 16:00 Pulse Ox 97 02/05/18 16:00 Intake & Output 02/05/18 02/05/18 02/06/18 06:59 18:59 06:59 Intake Total 560 800 Output Total 1000 Balance -440 800 Weight (lbs) 63.503 kg 61.235 kg Intake: Oral 560 800 Output: Urine 1000 Other: # Voids 3 # Bowel Movements 1 Weight Source Bedscale Bedscale Active Medications: Current Medications Bisacodyl (Dulcolax 10 Mg Supp) 10 mg RC DAILY [facility] Stop: 04/05/18 08:59 Last Admin: 02/05/18 10:24 Dose: 10 mg Enalapril Maleate (Vasotec) 5 mg PO DAILY [facility] Stop: 04/03/18 17:17 Last Admin: 02/05/18 10:26 Dose: 5 mg Fluticasone Propionate (Flonase) 2 spr NS DAILY [facility] Stop: 04/05/18 08:59 Last Admin: 02/05/18 10:31 Dose: 2 spr Gabapentin (Neurontin) 300 mg PO TID [facility] Stop: 04/04/18 13:59 Last Admin: 02/05/18 22:46 Dose: 300 mg Neomycin/Polymyxin/Bacitracin (Triple Antibiotic Pkt) 1 pkt TP BID [facility] Stop: 04/04/18 14:14 Last Admin: 02/05/18 16:09 Dose: 1 pkt Oxycodone/Acetaminophen (Percocet 5/325mg Oral Tab) 1 tab PO Q6HR PRN PRN Reason: Pain (Moderate) Stop: 04/04/18 13:02 Last Admin: 02/05/18 22:51 Dose: 1 tab General: no acute distress, well developed HEENT: atraumatic, normocephalic, EOMI Neck: supple Abdomen: soft, tender, distended, mass Extremities: cyanosis, no clubbing Neurological: awake, alert, oriented Skin: intact Infectious Disease Assmt/Plan - Assessment Assessment: 1. Syncope and near syncopal episodes with frequent falls. 2. Hypertension. 3. History of back pain. 4. History of cerebrovascular accident and transient ischemic attack. 5. Dyslipidemia. 6. Arthritis. - Plan Plan: CPM.Cardiology consult by Dr Chacorta Swann is appreciated. Neurology eval.
[2018-02-06] MEDS: APAP/Oxycodone 5/325mg Oral Tab PO PRN ×3 (06:47→20:56)
[2018-02-06 06:49] LABS: % BASOPHILS 0.8 % (0.0-2.0); % EOSINOPHILS 7.3 % (0.0-5.0); % LYMPHOCYTES 42.9 % (20.0-50.0); % MONOCYTES 9.3 % (2.0-10.0); % NEUTROPHILS 39.7 % (40.0-80.0); BASOPHILE ABSOLUTE 0.1 Th/cumm (0-0.2); EOSINOPHILE ABSOLUTE 0.5 Th/cmm (0.1-0.4); HEMATOCRIT 45.8 % (41.0-60); HEMOGLOBIN 15.4 gm/dL (12-16); LYMPHOCYTE ABSOLUTE 2.7 Th/cmm (1.5-3.0); MEAN CELL VOLUME 95.3 fl (80-99); MEAN CORPUSCULAR HGB CONC 33.6 pg (28.0-36.0); MONOCYTE ABSOLUTE 0.6 Th/cmm (0.3-1.0); NEUTROPHILE ABSOLUTE 2.6 Th/cmm (1.8-8.0); PLATELET COUNT 272 Th/cmm (150-400); RED CELL DISTRIBUTION WIDTH 13.2 % (11.5-20.0); WHITE BLOOD COUNT 6.5 Th/cmm (4.8-10.8)
[2018-02-06 07:13] LABS: ALB/GLOB RATIO 1.2 (1.0-1.8); ALKALINE PHOSPHATASE 65 U/L (34-104); ANION GAP 8.7 (7.0-16.0); BILIRUBIN,TOTAL 0.4 mg/dL (0.3-1.0); BUN - UREA NITROGEN 16 mg/dL (7-25); CALCIUM SERUM 9.5 mg/dL (8.6-10.3); CARBON DIOXIDE 27.4 mEq/L (21.0-31.0); CHLORIDE 105 mEq/L (98-107); CREATININE - SERUM 0.8 mg/dL (0.7-1.3); GFR AFRICAN-AMERICAN > 60.0 ml/min (>90); GFR NON AFRICAN-AMERICAN > 60.0 ml/min; GLUCOSE 90 mg/dL (70-105); POTASSIUM SERUM 4.1 mEq/L (3.5-5.1); SGOT 13 U/L (13-39); SGPT/ALT 10 U/L (7-52); SODIUM SERUM 137 mEq/L (136-145); TOTAL PROTEIN,SERUM 7.3 gm/dL (6.0-8.3)
[2018-02-06] MEDS: Triple Antibiotic 0.94 gm Pkt TP SCH ×2 (09:02→16:24)
[2018-02-06] MEDS: Fluticasone Propionate 0.05mg/Actuation 16gm Nasal Spray NS SCH (09:02)
[2018-02-07] MEDS: APAP/Oxycodone 5/325mg Oral Tab PO PRN ×2 (03:17→10:14)
--- NOTE | 2018-02-07 07:18 | Diagnostic Imaging Report ---
CT scan lumbar spine HISTORY: Pain, myelopathy, prior surgery. Total DLP equals 719 CTDI equals 36.8 Axial sections were obtained through the lumbar spine. Additional sagittal and coronal reformatted images are provided. The exam is limited and compromised due to artifact associated with orthopedic metallic hardware traversing the bodies and posterior elements of L3, L4, L5, and S1. Intervertebral disc prostheses seen at L3-4, L4-5, and L5-S1. Partial fusion L5-S1. Associated laminectomy defects noted through the above levels. Severe degenerative changes noted with hypertrophic spur formation seen about the endplates of all vertebrae. There is mild spondylolisthesis of L4 on L5. Air is seen within the interspaces at L1-2 and L2-3 reflecting degenerative disc disease. Marked irregularity associated with degenerative changes seen at L5-S1. Atherosclerotic calcification noted through the abdominal aorta and iliac vessels. IMPRESSION 1. Limited exam due to extensive artifact associated with orthopedic hardware traversing the bodies and posterior elements at multiple levels as noted above. 2. Surgical changes as noted above 3. Mild spondylolisthesis of L4 and L5 4. Atherosclerotic vascular changes
[2018-02-07] MEDS: Fluticasone Propionate 0.05mg/Actuation 16gm Nasal Spray NS SCH (10:09)
[2018-02-07] MEDS: Triple Antibiotic 0.94 gm Pkt TP SCH (10:09)
--- NOTE | 2018-02-07 10:55 | Infectious Disease Prog Note ---
Infectious Disease Subjective - Review of Systems Service Date: 02/07/18 Subjective: No new change, no fever. Infectious Disease Objective - Results Result Diagrams: 02/06/18 06:05 02/06/18 06:05 Recent Labs: Laboratory Last Values WBC 6.5 Th/cmm (4.8-10.8) 02/06/18 06:05 RBC 4.80 Mil/cmm (3.80-5.80) 02/06/18 06:05 Hgb 15.4 gm/dL (12-16) 02/06/18 06:05 Hct 45.8 % (41.0-60) 02/06/18 06:05 MCV 95.3 fl (80-99) 02/06/18 06:05 MCH 32.0 pg (27.0-31.0) H 02/06/18 06:05 MCHC Differential 33.6 pg (28.0-36.0) 02/06/18 06:05 RDW 13.2 % (11.5-20.0) 02/06/18 06:05 Plt Count 272 Th/cmm (150-400) 02/06/18 06:05 MPV 8.0 fl 02/06/18 06:05 Neutrophils % 39.7 % (40.0-80.0) L 02/06/18 06:05 Lymphocytes % 42.9 % (20.0-50.0) 02/06/18 06:05 Monocytes % 9.3 % (2.0-10.0) 02/06/18 06:05 Eosinophils % 7.3 % (0.0-5.0) H 02/06/18 06:05 Basophils % 0.8 % (0.0-2.0) 02/06/18 06:05 PT 10.1 SECONDS (9.5-11.5) 02/02/18 10:50 INR 0.97 (0.5-1.4) 02/02/18 10:50 Sodium 137 mEq/L (136-145) 02/06/18 06:05 Potassium 4.1 mEq/L (3.5-5.1) 02/06/18 06:05 Chloride 105 mEq/L (98-107) 02/06/18 06:05 Carbon Dioxide 27.4 mEq/L (21.0-31.0) 02/06/18 06:05 Anion Gap 8.7 (7.0-16.0) 02/06/18 06:05 BUN 16 mg/dL (7-25) 02/06/18 06:05 Creatinine 0.8 mg/dL (0.7-1.3) 02/06/18 06:05 Est GFR ( Amer) > 60.0 ml/min (>90) 02/06/18 06:05 Est GFR (Non-Af Amer) > 60.0 ml/min 02/06/18 06:05 BUN/Creatinine Ratio 20.0 02/06/18 06:05 Glucose 90 mg/dL (70-105) 02/06/18 06:05 Calcium 9.5 mg/dL (8.6-10.3) 02/06/18 06:05 Total Bilirubin 0.4 mg/dL (0.3-1.0) 02/06/18 06:05 AST 13 U/L (13-39) 02/06/18 06:05 ALT 10 U/L (7-52) 02/06/18 06:05 Alkaline Phosphatase 65 U/L (34-104) 02/06/18 06:05 Creatine Kinase 104 U/L (30-223) 02/02/18 10:50 Troponin I < 0.01 ng/mL (0.01-0.05) L 02/02/18 10:50 B-Natriuretic Peptide 15.3 pg/mL (5.0-100.0) 02/02/18 10:50 Total Protein 7.3 gm/dL (6.0-8.3) 02/06/18 06:05 Albumin 4.0 gm/dL (4.2-5.5) L 02/06/18 06:05 Globulin 3.3 gm/dL 02/06/18 06:05 Albumin/Globulin Ratio 1.2 (1.0-1.8) 02/06/18 06:05 Triglycerides 73 mg/dL (<150) 02/03/18 05:40 Cholesterol 142 mg/dL (<200) 02/03/18 05:40 LDL Cholesterol Direct 56 mg/dL (75-193) L 02/03/18 05:40 HDL Cholesterol 72 mg/dL (23-92) 02/03/18 05:40 Urine Source [place] 02/05/18 12:50 Urine Color YELLOW 02/05/18 12:50 Urine Clarity SLIGHT CLOUDY (CLEAR) 02/05/18 12:50 Urine pH 7.5 (4.6 - 8.0) 02/05/18 12:50 Ur Specific [place] 1.010 (1.005-1.030) 02/05/18 12:50 Urine Protein NEGATIVE mg/dL (NEGATIVE) 02/05/18 12:50 Urine Glucose (UA) NEGATIVE mg/dL (NEGATIVE) 02/05/18 12:50 Urine Ketones NEGATIVE mg/dL (NEGATIVE) 02/05/18 12:50 Urine Blood SMALL (NEGATIVE) H 02/05/18 12:50 Urine Nitrate POSITIVE (NEGATIVE) H 02/05/18 12:50 Urine Bilirubin NEGATIVE (NEGATIVE) 02/05/18 12:50 Urine Urobilinogen 0.2 E.U./dL (0.2 - 1.0) 02/05/18 12:50 Ur Leukocyte Esterase LARGE (NEGATIVE) H 02/05/18 12:50 Urine RBC 0-2 /hpf (0-5) H 02/05/18 12:50 Urine WBC 10-25 /hpf (0-5) H 02/05/18 12:50 Ur Epithelial Cells OCCASIONAL /lpf (FEW) 02/05/18 12:50 Triple Phos Crystals MODERATE /hpf (FEW) 02/05/18 12:50 Urine Bacteria MODERATE /hpf (NONE SEEN) H 02/05/18 12:50 - Physical Exam Vitals and I&O: Vital Signs Temp 98.2 F 02/07/18 06:00 Pulse 71 02/07/18 10:08 Resp 17 02/07/18 06:00 BP 136/80 02/07/18 10:08 Pulse Ox 98 02/07/18 06:00 Intake & Output 02/06/18 02/07/18 02/07/18 18:59 06:59 18:59 Intake Total 700 Balance 700 Weight (lbs) 61.235 kg Intake: Oral 700 Other: # Voids 4 # Bowel Movements 0 Weight Source Bedscale Active Medications: Current Medications Bisacodyl (Dulcolax 10 Mg Supp) 10 mg RC DAILY [facility] Stop: 04/05/18 08:59 Last Admin: 02/07/18 09:49 Dose: Not Given Enalapril Maleate (Vasotec) 5 mg PO DAILY [facility] Stop: 04/03/18 17:17 Last Admin: 02/07/18 10:08 Dose: 5 mg Fluticasone Propionate (Flonase) 2 spr NS DAILY [facility] Stop: 04/05/18 08:59 Last Admin: 02/07/18 10:09 Dose: 2 spr Gabapentin (Neurontin) 300 mg PO TID [facility] Stop: 04/04/18 13:59 Last Admin: 02/07/18 10:09 Dose: 300 mg Levofloxacin (Levaquin) 250 mg PO DAILY [facility] Stop: 04/09/18 08:59 Neomycin/Polymyxin/Bacitracin (Triple Antibiotic Pkt) 1 pkt TP BID [facility] Stop: 04/04/18 14:14 Last Admin: 02/07/18 10:09 Dose: 1 pkt Oxycodone/Acetaminophen (Percocet 5/325mg Oral Tab) 1 tab PO Q6HR PRN PRN Reason: Pain (Moderate) Stop: 04/04/18 13:02 Last Admin: 02/07/18 10:14 Dose: 1 tab Temazepam (Restoril) 15 mg PO HS PRN; Protocol PRN Reason: Insomnia Stop: 04/07/18 05:13 General: no acute distress, well developed, well nourished HEENT: atraumatic, normocephalic, PERRLA Neck: supple, thyromegaly Cardiovascular: S1S2, regular Lungs: clear to auscultation bilaterally, clear to percussion Abdomen: soft, no tender, no distended, no mass, no hepatomegaly Extremities: no cyanosis, no clubbing, no edema Neurological: awake, alert, oriented Skin: intact Infectious Disease Assmt/Plan - Assessment Assessment: 1. Syncope and near syncopal episodes with frequent falls. 2. Hypertension. 3. History of back pain. 4. History of cerebrovascular accident and transient ischemic attack. 5. Dyslipidemia. 6. Arthritis. 7. UTI. - Plan Plan: CPM.Cardiology consult by Dr Chacorta Swann is appreciated. Neurology eval by Dr Krishnan appreciated. Ct cervical spine for MRI of cervical spine. start levaquin po for 5 to 7 days. DC planning when cleared by Dr krishnan. [facility].
--- NOTE | 2018-02-07 11:24 | Diagnostic Imaging Report ---
CT scan cervical spine HISTORY: Pain Multiple MRI sequences were obtained in the sagittal and axial planes. Total DLP equals 541 CTDI equals 25.8 Axial sections were obtained to the cervical spine. Additional sagittal and coronal reformatted images are provided. There are mild diffuse degenerative changes with spur formation noted off the anterior inferior margins of the bodies of C3, C4, C5. Small calcifications adjacent to the anterior portions of the interspaces at C4-5 and C5-6 that may be related to the disc annuli. Additional degenerative change noted at C67 with slight narrowing of the interspaces. Spur formation extending off the anterior margins of these vertebrae. The prevertebral soft tissues appear normal. The margins of the cervical spinal cord or not clearly delineated. IMPRESSION: 1. No acute abnormalities 2. Diffuse degenerative changes
--- NOTE | 2018-02-09 16:35 | Cardiology ---
02/05/[address] Gregg Swann. M-MODE ECHOCARDIOGRAM: Mitral valve, anterior leaflet of mitral valve shows normal excursion, EF velocity. Posterior leaflet of mitral valve shows normal excursion. Left ventricular posterior shows increased thickness, normal excursion. Interventricular septum shows increased thickness, normal excursion, hypertrophy of the left ventricle, ejection fraction 50%. Left atrium normal. Aortic root shows normal dimension, normal excursion of aortic leaflets. CONCLUSION: Hypertrophy of the left ventricle, ejection fraction 50%. 2D ECHO: Long axis view showed normal-sized left ventricle with hypertrophy of the left ventricle, ejection fraction 50%. Left atrium normal. Aortic root shows normal dimension, normal excursion of aortic leaflets. Short axis view of mitral valve normal. Short axis view of aortic valve normal. Apical four chamber view showed normal sized left ventricle with hypertrophy of the left ventricle. Left atrium normal. Right ventricular cavity, right atrium normal. No pericardial effusion. CONCLUSION: Hypertrophy of the left ventricle, ejection fraction 50%. Doppler study showed mild tricuspid regurgitation, right ventricular systolic pressure 35 mmHg. [facility]# [id number]
== END 2018-02-07 15:00 | DRG 74 ==
LOC: ER 10:12 → MSI 15:15 → TELE 02-05 03:08 → MSI 02-07 10:53
PROVIDERS: ADMIT Internal Medicine Infectious Disease; ATTEND Internal Medicine Infectious Disease
DX: G62.9 Polyneuropathy, unspecified (principal); N39.0 Urinary tract infection, site not specified; R55 Syncope and collapse; E78.5 Hyperlipidemia, unspecified; I10 Essential (primary) hypertension; F17.210 Nicotine dependence, cigarettes, uncomplicated; R29.6 Repeated falls; M19.90 Unspecified osteoarthritis, unspecified site; Z88.0 Allergy status to penicillin; Z82.49 Family history of ischemic heart disease and other diseases of the circulatory system; Z91.81 History of falling; I69.30 Unspecified sequelae of cerebral infarction
CPT/HCPCS: 36415-UA; 70450-TC; 71045-TC; 72125-TC; 72131-TC; 80048-TC; 80053-TC; 80061-TC; 81001-TC; 82550-TC; 83880-TC; 84484-TC; 85025-TC; 85610-TC; 87086-90; 93005; 93880-TC; 94760; 96374; J7030; X3904; Z7610